=== PATIENT | male | born 1950 | race Caucasian/White ===

== ENCOUNTER → 2019-08-25 | Outpatient (CLI) | payer MEDICARE ==
--- NOTE | 2019-08-25 08:59 | KCIC ---
EXAM: CHEST PA LATERAL INDICATION: Reason: COUGH, HX ASTHMA / Spl. Instructions: Pt feels tickle in throat, is on lisinopril. / History: . TECHNIQUE: PA and lateral views COMPARISON: None FINDINGS: The heart size is normal. The great vessels appear unremarkable. There is no hilar or mediastinal mass. The lungs are clear. There is no pleural effusion or pneumothorax. There are no significant osseous abnormalities. IMPRESSION: No active cardiopulmonary disease. Electronically signed by: Omid Sanchez MD (08/25/2019 8:56 AM) [id number]
== END | disposition home or self-care (01) ==
LOC: KCIC 08:28
PROVIDERS: ATTEND Family Medicine
DX: R05 Cough (principal)
CPT/HCPCS: 71046